=== PATIENT | female | born 1980 | race Caucasian/White ===

== ENCOUNTER → 2025-01-05 07:57 | Outpatient (REF) | payer OTHER, SELFPAY | LOC: HWWDC 07:57 | PROVIDERS: ATTENDING PHYSICIAN Obstetrics & Gynecology Gynecology | DX: Z12.31 Encounter for screening mammogram for malignant neoplasm of breast (principal) | CPT/HCPCS: 77063; 77067 ==

== ENCOUNTER → 2025-05-30 13:57 | Outpatient (REF) | payer OTHER, SELFPAY | LOC: RAD 13:57 | PROVIDERS: ATTENDING PHYSICIAN Nurse Practitioner Family; FAMILY PHYSICIAN Family Medicine | DX: E34.9 Endocrine disorder, unspecified (principal); R53.81 Other malaise; E55.9 Vitamin D deficiency, unspecified; K58.9 Irritable bowel syndrome, unspecified; N97.0 Female infertility associated with anovulation; E03.9 Hypothyroidism, unspecified; J30.9 Allergic rhinitis, unspecified | CPT/HCPCS: 77080 ==